=== PATIENT | male | born 1995 ===

== ENCOUNTER 2018-01-24 20:07 | Emergency (ER) | payer OTHER ==
[2018-01-24 20:24] VITALS: BP 113/64
--- NOTE | 2018-01-24 20:30 | UC ---
Ear Complaint HPI - HPI Summary HPI Summary: Pt presents with 3 days of sinus pain/pressure/congestion and sore throat. Earlier today he developed left ear stabbing pain and a headache. Has not taken anything OTC. Denies fever, chills, cough, SOB, chest pain, abdominal pain. - History of Current Complaint Chief Complaint: UCEar Stated Complaint: EAR PAIN Time Seen by Provider: 01/24/18 20:30 Hx Obtained From: Patient Onset/Duration: Gradual Onset Severity Initially: Mild Severity Currently: Mild Pain Intensity: 2 Pain Scale Used: 0-10 Numeric - Allergies/Home Medications Allergies/Adverse Reactions: Allergies Allergy/AdvReac Type Severity Reaction Status Date / Time No Known Allergies Allergy Verified 01/24/18 20:24 Home Medications: Home Medications Ibuprofen TAB* [Advil TAB*] 200 mg PO Q6H PRN 01/24/18 [History Confirmed ] PMH/Surg Hx/FS Hx/Imm Hx Previously Healthy: Yes - Surgical History Surgical History: None - Family History Known Family History: Positive: None - Social History Occupation: Student Lives: With Family Alcohol Use: None Substance Use Type: None Smoking Status (MU): Never Smoked Tobacco Review of Systems Constitutional: Negative Skin: Negative Eyes: Negative ENT: Ear Ache, Sinus Congestion, Sinus Pain/Tenderness Cardiovascular: Negative Gastrointestinal: Negative Musculoskeletal: Negative Neurological: Headache Psychological: Negative All Other Systems Reviewed And Are Negative: Yes Physical Exam Triage Information Reviewed: Yes Appearance: Well-Appearing, No Pain Distress, Well-Nourished Vital Signs: Initial Vital Signs Temp 98.5 F 01/24/18 20:21 Pulse 63 01/24/18 20:21 Resp 16 01/24/18 20:21 BP 113/64 01/24/18 20:21 Pulse Ox 99 01/24/18 20:21 Vital Signs Reviewed: Yes Eyes: Positive: Conjunctiva Clear. Negative: Conjunctiva Inflamed, Discharge ENT: Positive: Hearing grossly normal, Pharynx normal, Nasal congestion, TM bulging - Left, TM red - Left, Uvula midline. Negative: Pharyngeal erythema, Nasal drainage, Tonsillar swelling, Tonsillar exudate, Hoarse voice, Sinus tenderness Neck: Positive: Supple, Nontender, No Lymphadenopathy Respiratory: Positive: Lungs clear, Normal breath sounds, No respiratory distress, No accessory muscle use Cardiovascular: Positive: RRR, No Murmur, Pulses Normal Neurological: Positive: Alert Psychological: Positive: Age Appropriate Behavior Skin: Negative: rashes Ear Complaint Course/Dx - Course Course Of Treatment: left ear OM - Differential Dx/Diagnosis Provider Diagnoses: Left otitis media Discharge - Discharge Plan Condition: Stable Disposition: HOME Prescriptions: Amoxicillin PO (*) [Amoxicillin 500 MG CAP*] 500 mg PO Q12H #20 cap Patient Education Materials: Ear Infection (ED) Referrals: [facility] - Sunny RICHARDSON [Primary Care Provider] - Additional Instructions: If you develop a fever, shortness of breath, chest pain, new or worsening symptoms - please call your PCP or go to the ED.
[2018-01-24] MEDS ORDERED: Amoxicillin PO (*) 500 MG CAP PO ONE ×5 (20:35→20:37)
== END 2018-01-24 20:50 | disposition home or self-care (01) ==
LOC: UCEAST 20:07
DX: H66.92 Otitis media, unspecified, left ear (principal); J02.9 Acute pharyngitis, unspecified; J34.89 Other specified disorders of nose and nasal sinuses; R51 Headache
CPT/HCPCS: 99212; A9270-GY; G0463